=== PATIENT | male | born 1950 | race Caucasian/White ===

== ENCOUNTER 2023-10-07 09:28 | Emergency (ER) | payer MEDICARE, OTHER ==
[~2023-10-07] VITALS: Ht 175.3 cm; Wt 96.6 kg
[~2023-10-07 09:28] MED LIST: AM250; ASPI-1406 PO; LEVO500T2 PO; METF-414 PO; TAMS-11 PO
[2023-10-07 09:35] VITALS: O2SAT 97
[2023-10-07 12:06] VITALS: BP 125/78; PULSE 81; RESP 16; TEMP 98.2
== END 2023-10-07 12:07 | disposition home or self-care (01) ==
LOC: ER 09:28
DX: M25.461 Effusion, right knee (principal)
CPT/HCPCS: 73562; 99283

== ENCOUNTER 2024-06-15 16:42 | Emergency (ER) | payer MEDICARE ==
[~2024-06-15] VITALS: Ht 175.3 cm; Wt 95.3 kg
[2024-06-15 17:08] VITALS: O2SAT 99
[2024-06-15 17:47] LABS: BASOPHILS % 0.4 % (0.0-2.0); HEMATOCRIT. 44.9 % (42.0-52.0); HEMOGLOBIN. 14.4 g/dL (14.0-18.0); LYMPHOCYTES % 11.2 % (20.0-50.0); MEAN CORPUSCULAR HEMOGLOBIN 26.4 pg (28.0-32.0); MEAN CORPUSCULAR HGB CONC 32.1 g/dL (31.0-37.0); MEAN PLATELET VOLUME 7.1 fl (7.4-10.4); MONOCYTES % 6.8 % (2.0-8.0); NEUTROPHILS % 78.6 % (40.0-76.0); PLATELET 229 x1000/uL (130-400); RED BLOOD CELL COUNT 5.47 mill/uL (4.7-6.1); WHITE BLOOD COUNT 10.5 x1000/uL (4.5-11.0)
[2024-06-15 17:50] LABS: POTASSIUM 4.4 mEq/L (3.5-5.1)
[2024-06-15 17:51] LABS: CALCIUM 9.2 mg/dL (8.7-10.4)
[2024-06-15 17:56] LABS: CREATININE 1.5 mg/dL (0.6-1.3)
[2024-06-15 19:00] LABS: CLARITY URINE TURBID (CLEAR); COLOR URINE RED (YELLOW)
[2024-06-15 19:01] LABS: GLUCOSE URINE 1+ (NEGATIVE); KETONES URINE TRACE (NEGATIVE); LEUKOCYTE ESTERASE URINE 1+ (NEGATIVE); NITRITE URINE POSITIVE (NEGATIVE); OCCULT BLOOD URINE 3+ (NEGATIVE); PH URINE 6.5 (4.5-8.0); PROTEIN URINE 2+ (NEGATIVE)
[2024-06-15] MEDS ORDERED: CEPH500C2 MT (19:40)
[2024-06-15 19:53] VITALS: BP 175/94; PULSE 100; RESP 18; TEMP 36.7; O2SAT 96
[2024-06-15 20:13] LABS: BACTERIA URINE 1+; RBC URINE TNTC /hpf (0-2); SQUAMOUS EPITHELIAL CELL URINE FEW /lpf (RARE/1+)
== END 2024-06-15 19:59 | disposition home or self-care (01) ==
LOC: ER 16:42
DX: R33.9 Retention of urine, unspecified (principal); I10 Essential (primary) hypertension; E78.5 Hyperlipidemia, unspecified; Z79.82 Long term (current) use of aspirin
CPT/HCPCS: 36415; 71045; 80048; 81003; 85025; 93005; 99285